=== PATIENT | female | born 1950 | race Caucasian/White ===

== ENCOUNTER 2016-07-11 11:24 | Inpatient (IN) | payer MEDICARE ==
[~2016-07-11] VITALS: Ht 165.1 cm; Wt 72.6 kg
--- NOTE | ~2016-07-11 | O ---
[place], [place] OPERATIVE NOTE NAME: KRISTIE KILGORE UNIT #: [id number] ROOM: [facility] DOCTOR: DUSTIN QURESHI MD BIRTHDATE: [birth year] DOS: 07/16/2016 PREOPERATIVE DIAGNOSIS: Perforated diverticulitis with pericolonic abscesses. POSTOPERATIVE DIAGNOSIS: Perforated diverticulitis with pericolonic abscesses. PROCEDURE: Exploratory laparotomy, sigmoid dissection, end colostomy (Sanjiv's procedure). SURGEON: Dustin Qureshi MD WILD OYSTER HARVESTER: MS3. ANESTHESIA: GET. INDICATIONS: This is a 66-year-old lady admitted with abdominal pain and a CAT scan that showed perforated diverticulitis. After she was started on medical measurement, she took a turn for the worse today and a CAT scan done this morning revealed that she developed worsening abscesses and worsening in inflammation in the sigmoid colon, where the diverticula were situated. It was therefore decided to take the patient to the operating room for the above-mentioned procedure. The procedure and its complications were explained to the patient in detail preoperatively. Complications that were discussed included, but were not limited to bleeding, infection, hematoma/seroma/abscess formation, prolonged postoperative pain, incisional hernia formation, damage to underlying vital structures, inadvertent injury to the ureters and wound dehiscence. She agreed to proceed. DESCRIPTION OF PROCEDURE: After identifying the patient, the patient was brought to the operating suite and laid in the supine position. After induction of general anesthesia, a Beltran catheter was placed in the urinary bladder and the parts were then painted and draped in the usual sterile fashion. A midline incision was made. The skin and the subcutaneous tissue were incised in the line of the incision. The fascia was incised and the peritoneum was opened. A Bookwalter retractor was placed in order to get adequate retraction. There was found to be dilated loops of small bowel with a transition point in the region of the pelvis where a segment of the terminal ileum had adhesed itself to the inflammation around the sigmoid colon. This loop of bowel was freed with the help of blunt dissection and the entire small bowel was then retracted away from the left lower quadrant and the pelvic areas. At this point, the white line of Toldt was incised laterally on the sigmoid colon area and the lower part of the descending colon and sigmoid colon were meticulously freed up from the surrounding areas. The vasculature of the sigmoid colon was taken down with the help of LigaSure device. This was done after the descending colon was divided with the help of MAURA stapler. The sigmoid colon was further mobilized with the help of electrocautery and blunt dissection as well as the mesentery of the sigmoid colon was taken down with the help of the LigaSure device. After adequate mobilization was completed, the ureter was visualized and it was found to be intact on the left side. At this point, the specimen was removed from the pelvic area by placing an atraumatic clamp over the distal margin of resection. [place], [place] OPERATIVE NOTE NAME: KRISTIE KILGORE UNIT #: [id number] ROOM: [facility] DOCTOR: DUSTIN QURESHI MD BIRTHDATE: [birth year] The specimen was sent for histopathological diagnosis. Thereafter, hemostasis was achieved in the region of the mesentery of the lower part of the sigmoid colon and the rectosigmoid area and the lumen was approximated with the help of 0 silk in an interrupted fashion and 0 Prolene in a running fashion. Thereafter, saline was used for irrigation and the entire small intestine was explored in order to make sure that there was no obvious injury. After that was done, the descending colon was further mobilized in order to create an end colostomy. After that was done, a position was chosen in the left lower quadrant in the colostomy triangle and a circular incision was made in the skin. The skin and the subcutaneous tissue were incised and the fascia was opened in a cruciate fashion. Thereafter, the distal part of the descending colon, which had been stapled was brought out and stabilized with the help of 2 Concord forceps. At this point, hemostasis was confirmed and the fascial defect in the midline was approximated with the help of looped PDS in a running fashion. The skin edges were then irrigated and they were approximated with the help of nely. The colostomy was matured by incising on the staple segment and then suturing the edges of the colon to the skin edges. VAC dressing was placed over the incision and a colostomy bag was then placed over the area of the colostomy. Then, it was hooked up to the vacuum pump and the patient was extubated and brought back to the recovery room in stable fashion. Note should be made that prior to closure, a 15-Polish round Alex-Cheney drain was placed and brought out through another stab incision in the right lower quadrant. The drain was fixed to the overlying skin with the help of a silk suture. The patient tolerated the procedure well. There were no complications. Blood loss was [address] Dustin Qureshi, the attending surgeon, was present throughout the operating case. Dustin Qureshi MD CM:OPRECORD:OPERATIVE NOTE [id number] DUSTIN QURESHI MD 07/16/161927 interface
--- NOTE | ~2016-07-11 | PR ---
[place], [place] PROGRESS NOTE NAME: KRISTIE KILGORE UNIT #: [id number] ROOM: 520 DOCTOR: DAVY FOREMAN,ITALIA Bello BIRTHDATE: [birth year] DOS: 07/24/2016 ADDENDUM I agree with the above plans as described. I will follow the patient up clinically and adjust accordingly. ITALIA BHATIT MD CM:PNTRANS [id number] ITALIA BHATTI MD 07/26/16 1049 interface
--- NOTE | ~2016-07-11 | PR ---
[place], [place] PROGRESS NOTE NAME: KRISTIE KILGORE UNIT #: [id number] ROOM: 520 DOCTOR: NICKY LOVE,AUGUST BIRTHDATE: [birth year] DOS: SUBJECTIVE: The patient is a 66-year-old female who is being followed for perforated diverticulitis. She is status post Sanjiv's procedure on 07/16/2016. Postoperatively, she had issues with fever and had a repeat CT, had fluid collection. She had a drain placed per Interventional Radiology. She has been having minimal drainage from she has [address] WBCs have been improving, they were 15.7 yesterday, 12.6 today. She is afebrile at this point. Her antibiotics yesterday were changed to Rocephin and Flagyl, fluconazole was also added. Abscess culture where IR placed a drain is growing yeast. She had developed a rash approximately 2-3 days ago as she had been on Zosyn at that time. She was seen by resident yesterday in consultation on behalf of Dr. Guo and antibiotics were changed to Rocephin and Flagyl and again fluconazole was ordered. She denies any cough or shortness of breath. No nausea or vomiting. Colostomy has been producing stool without issue. CURRENT MEDICATIONS: Include fluconazole, Pepcid, albumin, Rocephin, Benadryl, Flagyl, morphine, Wiggins, Lovenox, Protonix, Synthroid, nasal spray. LABORATORY DATA: WBCs 12.6, platelets 560, BUN 11, creatinine 1.17. LFTs within normal limits. Albumin 2.8. REVIEW OF SYSTEMS: Abdominal pain is improving. PHYSICAL EXAMINATION: VITAL SIGNS: Show temperature 98.6, pulse 92, respirations 20, BP 105/70, she has been afebrile. GENERAL: A 66-year-old female in no acute distress. HEAD, EYES, EARS, NOSE, AND THROAT: Normocephalic, no thrush. LUNGS: Clear to auscultation bilaterally. Respirations even and unlabored. HEART: Regular rhythm. No murmur appreciated. ABDOMEN: Soft, nondistended, positive bowel sounds. Ostomy with stool. Incision is well approximated with nely. No discharge or erythema. MELYSSA x 2 with small amount of serosanguineous discharge. EXTREMITIES: No edema, deformity or cyanosis. ASSESSMENT: Diverticulitis with perforation, now status post Sanjiv's procedure with abscess postoperatively. Cultures thus far with yeast. She also has an adverse drug reaction with rash, likely due to Zosyn. PLAN: At this point, we will continue the Rocephin and Flagyl as well as fluconazole. Follow up on her cultures. She does have Benadryl ordered for her rash. Case discussed with Dr. Italia Bhatti. AUGUST IVAN SAUNDERS [place], [place] PROGRESS NOTE NAME: KRISTIE KILGORE UNIT #: [id number] ROOM: [facility] DOCTOR: NICKY LOVE BIRTHDATE: [birth year] ITALIA BHATTI MD CM:PNTRANS [id number] [phone] NICKY LOVE 07/24/[id number] interface
[~2016-07-11 11:24] MED LIST: HYDROCODONE BIT1 T11 PO; KEFLEX500 M1 PO; Motrin,Rufen800 MG PO; PYRIDIUM200 M1 PO; Synthroid,Levo50 MCG PO; ZYRTEC10 M3 PO
[2016-07-11 12:11] LABS: BASO % 0.2 % (0.0-1.0); EOS % 0.1 % (1.0-4.0); HEMATOCRIT 39.2 % (37.0-47.0); HEMOGLOBIN 12.4 g/dl (12.0-16.0); IG # 0.1 10*3/uL (0.0-0.1); LYMPH # 0.7 10*3/uL (1.3-4.4); LYMPH % 5.2 % (27.0-41.0); MEAN CELL VOLUME 90.5 fl (81.0-99.0); MEAN CORPUSCULAR HGB 28.6 pg (27.0-31.0); MEAN CORPUSCULAR HGB CONC 31.6 g/dl (33.0-37.0); MEAN PLATELET VOLUME 10.3 fl (9.6-12.3); MONO # 0.6 10*3/uL (0.1-1.0); MONO % 3.9 % (3.0-9.0); NEUT # 12.6 10*3/uL (2.3-7.9); PLATELET COUNT AUTOMATED 203 10*3/uL (130-400); RED BLOOD COUNT 4.33 10*6/uL (4.10-5.10); RED CELL DISTRI WIDTH 13.3 % (0-14.5)
[2016-07-11 13:37] LABS: BILIRUBIN NEGATIVE (NEGATIVE); BLOOD 2+ (NEGATIVE); CLARITY SL CLOUDY (CLEAR); COLOR ORANGE (YELLOW); GLUCOSE 1+ (NEGATIVE); KETONE TRACE (NEGATIVE); NITRITE POSITIVE (NEGATIVE); PROTEIN 3+ (NEGATIVE); UROBILINOGEN >= 8.0 E.U./dl (0.2-1.0)
[2016-07-11 13:39] LABS: LEUKO ESTERASE 1+ (NEGATIVE)
[2016-07-11 13:56] LABS: URINE REFLEX COMMENT YES (NO)
[2016-07-11 14:37] LABS: BILIRUBIN, TOTAL 1.1 mg/dl (0.2-1.0); POTASSIUM 3.6 mmol/L (3.5-5.1)
[2016-07-11 18:27] LABS: CPK 115 U/L (26-192)
[2016-07-11 18:30] LABS: CKMB < 0.5 ng/ml (0.5-3.6); TROPONIN I < 0.015 ng/ml (<0.045)
[2016-07-12 00:40] LABS: CKMB 0.7 ng/ml (0.5-3.6); CPK 125 U/L (26-192)
[2016-07-12 00:41] LABS: TROPONIN I < 0.015 ng/ml (<0.045)
[2016-07-12 06:43] LABS: BASO % 0.2 % (0.0-1.0); EOS # 0.1 10*3/uL (0.0-0.4); EOS % 0.7 % (1.0-4.0); HEMATOCRIT 38.4 % (37.0-47.0); HEMOGLOBIN 12.1 g/dl (12.0-16.0); IG # 0.1 10*3/uL (0.0-0.1); LYMPH # 1.1 10*3/uL (1.3-4.4); LYMPH % 8.7 % (27.0-41.0); MEAN CELL VOLUME 90.4 fl (81.0-99.0); MEAN CORPUSCULAR HGB 28.5 pg (27.0-31.0); MEAN CORPUSCULAR HGB CONC 31.5 g/dl (33.0-37.0); MEAN PLATELET VOLUME 10.7 fl (9.6-12.3); MONO # 0.7 10*3/uL (0.1-1.0); MONO % 5.3 % (3.0-9.0); NEUT % 84.3 % (47.0-73.0); PLATELET COUNT AUTOMATED 226 10*3/uL (130-400); RED BLOOD COUNT 4.25 10*6/uL (4.10-5.10); RED CELL DISTRI WIDTH 13.3 % (0-14.5)
[2016-07-12 06:52] LABS: CKMB 0.7 ng/ml (0.5-3.6); CPK 109 U/L (26-192)
[2016-07-12 07:03] LABS: TROPONIN I < 0.015 ng/ml (<0.045)
[2016-07-12 07:12] LABS: ALBUMIN 2.5 gm/dl (3.1-4.5); BILIRUBIN, TOTAL 0.9 mg/dl (0.2-1.0); MAGNESIUM 2.2 mg/dL (1.5-2.1); PHOSPHOROUS 1.7 mg/dL (2.5-4.9); POTASSIUM 3.3 mmol/L (3.5-5.1); TOTAL PROTEIN 6.3 gm/dL (6.4-8.2)
[2016-07-12 07:23] LABS: INTERNATIONAL NORM RATIO 0.9 (2.0-3.5)
[2016-07-13 06:04] LABS: BASO % 0.4 % (0.0-1.0); EOS # 0.2 10*3/uL (0.0-0.4); EOS % 1.9 % (1.0-4.0); HEMATOCRIT 36.3 % (37.0-47.0); HEMOGLOBIN 11.3 g/dl (12.0-16.0); IG # 0.1 10*3/uL (0.0-0.1); LYMPH # 1.1 10*3/uL (1.3-4.4); LYMPH % 9.9 % (27.0-41.0); MEAN CELL VOLUME 91.4 fl (81.0-99.0); MEAN CORPUSCULAR HGB 28.5 pg (27.0-31.0); MEAN CORPUSCULAR HGB CONC 31.1 g/dl (33.0-37.0); MEAN PLATELET VOLUME 10.1 fl (9.6-12.3); MONO # 0.8 10*3/uL (0.1-1.0); NEUT # 8.6 10*3/uL (2.3-7.9); NEUT % 80.2 % (47.0-73.0); PLATELET COUNT AUTOMATED 249 10*3/uL (130-400); RED BLOOD COUNT 3.97 10*6/uL (4.10-5.10); RED CELL DISTRI WIDTH 13.3 % (0-14.5); WHITE BLOOD COUNT 10.8 10*3/uL (4.8-10.8)
[2016-07-13 06:32] LABS: ALBUMIN 2.3 gm/dl (3.1-4.5); MAGNESIUM 2.3 mg/dL (1.5-2.1); POTASSIUM 3.7 mmol/L (3.5-5.1)
[2016-07-13 06:34] LABS: BILIRUBIN, TOTAL 0.5 mg/dl (0.2-1.0); PHOSPHOROUS 3.1 mg/dL (2.5-4.9); TOTAL PROTEIN 5.8 gm/dL (6.4-8.2)
[2016-07-14 07:09] LABS: BASO # 0.1 10*3/uL (0.0-0.1); BASO % 0.5 % (0.0-1.0); EOS # 0.2 10*3/uL (0.0-0.4); EOS % 2.4 % (1.0-4.0); HEMATOCRIT 36.3 % (37.0-47.0); HEMOGLOBIN 11.4 g/dl (12.0-16.0); IG # 0.1 10*3/uL (0.0-0.1); LYMPH # 1.1 10*3/uL (1.3-4.4); MEAN CELL VOLUME 90.8 fl (81.0-99.0); MEAN CORPUSCULAR HGB 28.5 pg (27.0-31.0); MEAN CORPUSCULAR HGB CONC 31.4 g/dl (33.0-37.0); MONO # 0.9 10*3/uL (0.1-1.0); MONO % 8.9 % (3.0-9.0); NEUT # 7.7 10*3/uL (2.3-7.9); NEUT % 76.2 % (47.0-73.0); NUCLEATED RED BLOOD CELL 0.2 % (0.0-0.0); PLATELET COUNT AUTOMATED 252 10*3/uL (130-400); RED CELL DISTRI WIDTH 13.3 % (0-14.5); WHITE BLOOD COUNT 10.2 10*3/uL (4.8-10.8)
[2016-07-14 07:33] LABS: BUN 13 mg/dl (7-24); CARBON DIOXIDE 22 mmol/L (21-32); CHLORIDE 111 mmol/L (98-107); EST GLOM FILT AFRICAN AMERICAN > 60 ml/min; GLUCOSE 70 mg/dL (65-99); POTASSIUM 3.4 mmol/L (3.5-5.1); SODIUM 146 mmol/L (136-145)
[2016-07-15 06:19] LABS: BASO # 0.1 10*3/uL (0.0-0.1); BASO % 0.6 % (0.0-1.0); EOS # 0.3 10*3/uL (0.0-0.4); EOS % 2.7 % (1.0-4.0); HEMATOCRIT 37.3 % (37.0-47.0); HEMOGLOBIN 11.8 g/dl (12.0-16.0); IG # 0.3 10*3/uL (0.0-0.1); LYMPH # 1.5 10*3/uL (1.3-4.4); LYMPH % 13.3 % (27.0-41.0); MEAN CELL VOLUME 90.3 fl (81.0-99.0); MEAN CORPUSCULAR HGB 28.6 pg (27.0-31.0); MEAN CORPUSCULAR HGB CONC 31.6 g/dl (33.0-37.0); MEAN PLATELET VOLUME 9.9 fl (9.6-12.3); MONO # 0.8 10*3/uL (0.1-1.0); MONO % 7.5 % (3.0-9.0); NEUT % 73.5 % (47.0-73.0); NUCLEATED RED BLOOD CELL 0.3 % (0.0-0.0); PLATELET COUNT AUTOMATED 303 10*3/uL (130-400); RED BLOOD COUNT 4.13 10*6/uL (4.10-5.10); RED CELL DISTRI WIDTH 13.2 % (0-14.5); WHITE BLOOD COUNT 10.9 10*3/uL (4.8-10.8)
[2016-07-15 06:44] LABS: BUN 15 mg/dl (7-24); CARBON DIOXIDE 19 mmol/L (21-32); CHLORIDE 108 mmol/L (98-107); EST GLOM FILT AFRICAN AMERICAN > 60 ml/min; GLUCOSE 59 mg/dL (65-99); POTASSIUM 3.3 mmol/L (3.5-5.1); SODIUM 144 mmol/L (136-145)
[2016-07-16 06:47] LABS: BUN 9 mg/dl (7-24); CARBON DIOXIDE 23 mmol/L (21-32); CHLORIDE 106 mmol/L (98-107); EST GLOM FILT AFRICAN AMERICAN > 60 ml/min; GLUCOSE 86 mg/dL (65-99); POTASSIUM 3.2 mmol/L (3.5-5.1); SODIUM 143 mmol/L (136-145)
[2016-07-16 07:47] LABS: BASO # 0.1 10*3/uL (0.0-0.1); BASO % 0.4 % (0.0-1.0); EOS # 0.3 10*3/uL (0.0-0.4); EOS % 2.3 % (1.0-4.0); HEMATOCRIT 34.3 % (37.0-47.0); HEMOGLOBIN 11.1 g/dl (12.0-16.0); IG # 0.2 10*3/uL (0.0-0.1); LYMPH # 1.2 10*3/uL (1.3-4.4); LYMPH % 10.2 % (27.0-41.0); MEAN CELL VOLUME 88.9 fl (81.0-99.0); MEAN CORPUSCULAR HGB 28.8 pg (27.0-31.0); MEAN CORPUSCULAR HGB CONC 32.4 g/dl (33.0-37.0); MEAN PLATELET VOLUME 9.9 fl (9.6-12.3); MONO # 1.1 10*3/uL (0.1-1.0); MONO % 9.5 % (3.0-9.0); NEUT # 8.8 10*3/uL (2.3-7.9); NEUT % 75.7 % (47.0-73.0); NUCLEATED RED BLOOD CELL 0.1 10*3/uL (0.0-0.0); NUCLEATED RED BLOOD CELL 0.4 % (0.0-0.0); PLATELET COUNT AUTOMATED 270 10*3/uL (130-400); RED BLOOD COUNT 3.86 10*6/uL (4.10-5.10); RED CELL DISTRI WIDTH 13.3 % (0-14.5); WHITE BLOOD COUNT 11.6 10*3/uL (4.8-10.8)
[2016-07-17 05:54] LABS: BASO % 0.2 % (0.0-1.0); EOS % 0.3 % (1.0-4.0); HEMATOCRIT 35.7 % (37.0-47.0); HEMOGLOBIN 11.2 g/dl (12.0-16.0); IG # 0.2 10*3/uL (0.0-0.1); LYMPH # 1.1 10*3/uL (1.3-4.4); LYMPH % 9.6 % (27.0-41.0); MEAN CELL VOLUME 89.5 fl (81.0-99.0); MEAN CORPUSCULAR HGB 28.1 pg (27.0-31.0); MEAN CORPUSCULAR HGB CONC 31.4 g/dl (33.0-37.0); MONO # 0.7 10*3/uL (0.1-1.0); MONO % 6.1 % (3.0-9.0); NEUT # 9.5 10*3/uL (2.3-7.9); NEUT % 82.1 % (47.0-73.0); NUCLEATED RED BLOOD CELL 0.2 % (0.0-0.0); PLATELET COUNT AUTOMATED 312 10*3/uL (130-400); RED BLOOD COUNT 3.99 10*6/uL (4.10-5.10); RED CELL DISTRI WIDTH 13.5 % (0-14.5); WHITE BLOOD COUNT 11.5 10*3/uL (4.8-10.8)
[2016-07-17 05:55] LABS: ALBUMIN 1.8 gm/dl (3.1-4.5); ALKALINE PHOSPHATASE 50 U/L (45-117); BILIRUBIN, TOTAL 0.5 mg/dl (0.2-1.0); BUN 7 mg/dl (7-24); CARBON DIOXIDE 22 mmol/L (21-32); CHLORIDE 106 mmol/L (98-107); EST GLOM FILT AFRICAN AMERICAN > 60 ml/min; GLUCOSE 96 mg/dL (65-99); MAGNESIUM 1.8 mg/dL (1.5-2.1); POTASSIUM 3.9 mmol/L (3.5-5.1); SGOT/AST 23 IU/L (3-35); SGPT/ALT 14 U/L (12-78); SODIUM 142 mmol/L (136-145); TOTAL PROTEIN 5.1 gm/dL (6.4-8.2)
[2016-07-18 06:28] LABS: BASO # 0.1 10*3/uL (0.0-0.1); BASO % 0.3 % (0.0-1.0); EOS # 0.3 10*3/uL (0.0-0.4); EOS % 1.8 % (1.0-4.0); HEMATOCRIT 32.9 % (37.0-47.0); HEMOGLOBIN 10.4 g/dl (12.0-16.0); IG # 0.2 10*3/uL (0.0-0.1); LYMPH % 6.5 % (27.0-41.0); MEAN CELL VOLUME 89.6 fl (81.0-99.0); MEAN CORPUSCULAR HGB 28.3 pg (27.0-31.0); MEAN CORPUSCULAR HGB CONC 31.6 g/dl (33.0-37.0); MEAN PLATELET VOLUME 9.6 fl (9.6-12.3); MONO # 0.9 10*3/uL (0.1-1.0); MONO % 5.7 % (3.0-9.0); NEUT # 12.9 10*3/uL (2.3-7.9); NEUT % 84.3 % (47.0-73.0); NUCLEATED RED BLOOD CELL 0.1 % (0.0-0.0); PLATELET COUNT AUTOMATED 319 10*3/uL (130-400); RED BLOOD COUNT 3.67 10*6/uL (4.10-5.10); RED CELL DISTRI WIDTH 13.6 % (0-14.5); WHITE BLOOD COUNT 15.3 10*3/uL (4.8-10.8)
[2016-07-18 06:43] LABS: ALBUMIN 1.8 gm/dl (3.1-4.5); ALKALINE PHOSPHATASE 51 U/L (45-117); BILIRUBIN, TOTAL 0.6 mg/dl (0.2-1.0); BUN 7 mg/dl (7-24); CARBON DIOXIDE 25 mmol/L (21-32); CHLORIDE 103 mmol/L (98-107); EST GLOM FILT AFRICAN AMERICAN > 60 ml/min; GLUCOSE 76 mg/dL (65-99); POTASSIUM 3.6 mmol/L (3.5-5.1); SGOT/AST 40 IU/L (3-35); SGPT/ALT 16 U/L (12-78); SODIUM 141 mmol/L (136-145); TOTAL PROTEIN 5.5 gm/dL (6.4-8.2)
[2016-07-18 12:57] LABS: BILIRUBIN 1+ (NEGATIVE); BLOOD 3+ (NEGATIVE); CLARITY SL CLOUDY (CLEAR); COLOR YELLOW (YELLOW); GLUCOSE NEGATIVE (NEGATIVE); KETONE 3+ (NEGATIVE); LEUKO ESTERASE NEGATIVE (NEGATIVE); NITRITE NEGATIVE (NEGATIVE); PROTEIN 1+ (NEGATIVE); SPECIFIC GRAVITY 1.025 (1.005-1.030); UROBILINOGEN 0.2 E.U./dl (0.2-1.0)
[2016-07-18 13:11] LABS: BACTERIA 1+; MUCOUS 1+; RBC 41-50 rbc/hpf (0-2); URIC ACID CRYSTALS 1+
[2016-07-18 13:12] LABS: URINE REFLEX COMMENT YES (NO)
[2016-07-19 06:04] LABS: BASO % 0.2 % (0.0-1.0); EOS # 0.5 10*3/uL (0.0-0.4); EOS % 3.6 % (1.0-4.0); HEMATOCRIT 30.3 % (37.0-47.0); HEMOGLOBIN 9.5 g/dl (12.0-16.0); IG # 0.3 10*3/uL (0.0-0.1); LYMPH # 1.4 10*3/uL (1.3-4.4); LYMPH % 10.2 % (27.0-41.0); MEAN CELL VOLUME 89.9 fl (81.0-99.0); MEAN CORPUSCULAR HGB 28.2 pg (27.0-31.0); MEAN CORPUSCULAR HGB CONC 31.4 g/dl (33.0-37.0); MEAN PLATELET VOLUME 9.9 fl (9.6-12.3); MONO # 0.8 10*3/uL (0.1-1.0); NEUT # 10.8 10*3/uL (2.3-7.9); NEUT % 78.2 % (47.0-73.0); PLATELET COUNT AUTOMATED 347 10*3/uL (130-400); RED BLOOD COUNT 3.37 10*6/uL (4.10-5.10); RED CELL DISTRI WIDTH 13.6 % (0-14.5); WHITE BLOOD COUNT 13.8 10*3/uL (4.8-10.8)
[2016-07-19 06:11] LABS: BUN 7 mg/dl (7-24); CARBON DIOXIDE 28 mmol/L (21-32); CHLORIDE 104 mmol/L (98-107); EST GLOM FILT AFRICAN AMERICAN > 60 ml/min; GLUCOSE 88 mg/dL (65-99); POTASSIUM 3.1 mmol/L (3.5-5.1); SODIUM 142 mmol/L (136-145)
[2016-07-20 06:25] LABS: BASO % 0.3 % (0.0-1.0); EOS # 0.3 10*3/uL (0.0-0.4); EOS % 2.6 % (1.0-4.0); HEMATOCRIT 30.8 % (37.0-47.0); HEMOGLOBIN 9.7 g/dl (12.0-16.0); IG # 0.2 10*3/uL (0.0-0.1); LYMPH # 1.5 10*3/uL (1.3-4.4); LYMPH % 13.2 % (27.0-41.0); MEAN CELL VOLUME 89.8 fl (81.0-99.0); MEAN CORPUSCULAR HGB 28.3 pg (27.0-31.0); MEAN CORPUSCULAR HGB CONC 31.5 g/dl (33.0-37.0); MEAN PLATELET VOLUME 9.6 fl (9.6-12.3); MONO # 0.7 10*3/uL (0.1-1.0); MONO % 6.1 % (3.0-9.0); NEUT # 8.9 10*3/uL (2.3-7.9); NEUT % 76.2 % (47.0-73.0); NUCLEATED RED BLOOD CELL 0.3 % (0.0-0.0); PLATELET COUNT AUTOMATED 430 10*3/uL (130-400); RED BLOOD COUNT 3.43 10*6/uL (4.10-5.10); RED CELL DISTRI WIDTH 13.7 % (0-14.5); WHITE BLOOD COUNT 11.7 10*3/uL (4.8-10.8)
[2016-07-20 06:44] LABS: BUN 7 mg/dl (7-24); CARBON DIOXIDE 28 mmol/L (21-32); CHLORIDE 106 mmol/L (98-107); EST GLOM FILT AFRICAN AMERICAN > 60 ml/min; GLUCOSE 89 mg/dL (65-99); MAGNESIUM 2.1 mg/dL (1.5-2.1); PHOSPHOROUS 2.2 mg/dL (2.5-4.9); POTASSIUM 3.4 mmol/L (3.5-5.1); SODIUM 143 mmol/L (136-145)
[2016-07-21 07:21] LABS: BASO % 0.2 % (0.0-1.0); EOS # 0.3 10*3/uL (0.0-0.4); EOS % 2.4 % (1.0-4.0); HEMATOCRIT 28.7 % (37.0-47.0); HEMOGLOBIN 9.1 g/dl (12.0-16.0); IG # 0.2 10*3/uL (0.0-0.1); LYMPH # 1.3 10*3/uL (1.3-4.4); LYMPH % 9.6 % (27.0-41.0); MEAN CORPUSCULAR HGB 28.5 pg (27.0-31.0); MEAN CORPUSCULAR HGB CONC 31.7 g/dl (33.0-37.0); MEAN PLATELET VOLUME 9.6 fl (9.6-12.3); MONO # 0.9 10*3/uL (0.1-1.0); MONO % 6.8 % (3.0-9.0); NEUT # 10.4 10*3/uL (2.3-7.9); NEUT % 79.6 % (47.0-73.0); PLATELET COUNT AUTOMATED 444 10*3/uL (130-400); RED BLOOD COUNT 3.19 10*6/uL (4.10-5.10); RED CELL DISTRI WIDTH 13.8 % (0-14.5); WHITE BLOOD COUNT 13.1 10*3/uL (4.8-10.8)
[2016-07-21 07:50] LABS: BUN 8 mg/dl (7-24); CARBON DIOXIDE 29 mmol/L (21-32); CHLORIDE 108 mmol/L (98-107); EST GLOM FILT AFRICAN AMERICAN > 60 ml/min; GLUCOSE 99 mg/dL (65-99); POTASSIUM 3.7 mmol/L (3.5-5.1); SODIUM 146 mmol/L (136-145)
[2016-07-22 07:04] LABS: BASO % 0.3 % (0.0-1.0); EOS # 0.3 10*3/uL (0.0-0.4); EOS % 2.3 % (1.0-4.0); HEMATOCRIT 28.8 % (37.0-47.0); IG # 0.2 10*3/uL (0.0-0.1); LYMPH # 1.3 10*3/uL (1.3-4.4); LYMPH % 9.3 % (27.0-41.0); MEAN CELL VOLUME 89.7 fl (81.0-99.0); MEAN CORPUSCULAR HGB CONC 31.3 g/dl (33.0-37.0); MEAN PLATELET VOLUME 9.8 fl (9.6-12.3); MONO # 0.9 10*3/uL (0.1-1.0); MONO % 6.4 % (3.0-9.0); NEUT # 11.3 10*3/uL (2.3-7.9); PLATELET COUNT AUTOMATED 487 10*3/uL (130-400); RED BLOOD COUNT 3.21 10*6/uL (4.10-5.10); RED CELL DISTRI WIDTH 13.9 % (0-14.5); WHITE BLOOD COUNT 14.2 10*3/uL (4.8-10.8)
[2016-07-22 07:37] LABS: CHLORIDE 106 mmol/L (98-107); POTASSIUM 3.8 mmol/L (3.5-5.1); SODIUM 143 mmol/L (136-145)
[2016-07-22 07:50] LABS: ALBUMIN 1.8 gm/dl (3.1-4.5); ALKALINE PHOSPHATASE 63 U/L (45-117); BILIRUBIN, TOTAL 0.3 mg/dl (0.2-1.0); BUN 10 mg/dl (7-24); CARBON DIOXIDE 27 mmol/L (21-32); EST GLOM FILT AFRICAN AMERICAN > 60 ml/min; GLUCOSE 91 mg/dL (65-99); MAGNESIUM 2.2 mg/dL (1.5-2.1); PHOSPHOROUS 3.2 mg/dL (2.5-4.9); SGOT/AST 17 IU/L (3-35); SGPT/ALT 13 U/L (12-78); TOTAL PROTEIN 5.4 gm/dL (6.4-8.2)
[2016-07-22 08:45] LABS: BILIRUBIN NEGATIVE (NEGATIVE); BLOOD TRACE-LYSED (NEGATIVE); CLARITY SL CLOUDY (CLEAR); COLOR YELLOW (YELLOW); GLUCOSE NEGATIVE (NEGATIVE); KETONE NEGATIVE (NEGATIVE); LEUKO ESTERASE NEGATIVE (NEGATIVE); NITRITE NEGATIVE (NEGATIVE); PROTEIN NEGATIVE (NEGATIVE); UROBILINOGEN 0.2 E.U./dl (0.2-1.0)
[2016-07-22 08:51] LABS: EPITHELIAL CELLS 41-50
[2016-07-22 08:52] LABS: BACTERIA TRACE
[2016-07-23 06:33] LABS: BASO % 0.2 % (0.0-1.0); EOS # 0.3 10*3/uL (0.0-0.4); HEMOGLOBIN 9.7 g/dl (12.0-16.0); IG # 0.3 10*3/uL (0.0-0.1); LYMPH # 1.2 10*3/uL (1.3-4.4); LYMPH % 7.5 % (27.0-41.0); MEAN CELL VOLUME 89.1 fl (81.0-99.0); MEAN CORPUSCULAR HGB 27.9 pg (27.0-31.0); MEAN CORPUSCULAR HGB CONC 31.3 g/dl (33.0-37.0); MEAN PLATELET VOLUME 9.5 fl (9.6-12.3); MONO # 0.9 10*3/uL (0.1-1.0); MONO % 5.6 % (3.0-9.0); NEUT % 82.8 % (47.0-73.0); PLATELET COUNT AUTOMATED 586 10*3/uL (130-400); RED BLOOD COUNT 3.48 10*6/uL (4.10-5.10); RED CELL DISTRI WIDTH 14.2 % (0-14.5); WHITE BLOOD COUNT 15.7 10*3/uL (4.8-10.8)
[2016-07-24 07:06] LABS: BASO % 0.2 % (0.0-1.0); EOS # 0.4 10*3/uL (0.0-0.4); EOS % 3.2 % (1.0-4.0); HEMOGLOBIN 8.2 g/dl (12.0-16.0); IG # 0.2 10*3/uL (0.0-0.1); LYMPH % 8.1 % (27.0-41.0); MEAN CELL VOLUME 88.7 fl (81.0-99.0); MEAN CORPUSCULAR HGB CONC 31.5 g/dl (33.0-37.0); MEAN PLATELET VOLUME 9.4 fl (9.6-12.3); MONO # 0.9 10*3/uL (0.1-1.0); MONO % 6.8 % (3.0-9.0); NEUT # 10.1 10*3/uL (2.3-7.9); NEUT % 79.8 % (47.0-73.0); PLATELET COUNT AUTOMATED 560 10*3/uL (130-400); RED BLOOD COUNT 2.93 10*6/uL (4.10-5.10); RED CELL DISTRI WIDTH 14.1 % (0-14.5); WHITE BLOOD COUNT 12.6 10*3/uL (4.8-10.8)
[2016-07-24 07:35] LABS: ALBUMIN 2.8 gm/dl (3.1-4.5); POTASSIUM 3.8 mmol/L (3.5-5.1); TOTAL PROTEIN 5.9 gm/dL (6.4-8.2)
[2016-07-24 07:36] LABS: BILIRUBIN, TOTAL 0.3 mg/dl (0.2-1.0)
[2016-07-25 06:47] LABS: BASO % 0.2 % (0.0-1.0); EOS # 0.4 10*3/uL (0.0-0.4); EOS % 4.3 % (1.0-4.0); HEMATOCRIT 24.8 % (37.0-47.0); HEMOGLOBIN 7.7 g/dl (12.0-16.0); IG # 0.1 10*3/uL (0.0-0.1); LYMPH # 1.2 10*3/uL (1.3-4.4); LYMPH % 12.1 % (27.0-41.0); MEAN CELL VOLUME 89.9 fl (81.0-99.0); MEAN CORPUSCULAR HGB 27.9 pg (27.0-31.0); MEAN PLATELET VOLUME 9.2 fl (9.6-12.3); MONO # 0.8 10*3/uL (0.1-1.0); NEUT # 7.6 10*3/uL (2.3-7.9); PLATELET COUNT AUTOMATED 527 10*3/uL (130-400); RED BLOOD COUNT 2.76 10*6/uL (4.10-5.10); RED CELL DISTRI WIDTH 14.1 % (0-14.5); WHITE BLOOD COUNT 10.3 10*3/uL (4.8-10.8)
[2016-07-25 07:19] LABS: ALBUMIN 3.4 gm/dl (3.1-4.5); BILIRUBIN, TOTAL 0.3 mg/dl (0.2-1.0); POTASSIUM 3.7 mmol/L (3.5-5.1); TOTAL PROTEIN 6.2 gm/dL (6.4-8.2)
[2016-07-26 06:28] LABS: BASO % 0.4 % (0.0-1.0); EOS # 0.4 10*3/uL (0.0-0.4); EOS % 3.6 % (1.0-4.0); HEMATOCRIT 28.2 % (37.0-47.0); HEMOGLOBIN 8.7 g/dl (12.0-16.0); IG # 0.1 10*3/uL (0.0-0.1); LYMPH # 1.5 10*3/uL (1.3-4.4); LYMPH % 15.3 % (27.0-41.0); MEAN CORPUSCULAR HGB 28.1 pg (27.0-31.0); MEAN CORPUSCULAR HGB CONC 30.9 g/dl (33.0-37.0); MEAN PLATELET VOLUME 9.6 fl (9.6-12.3); MONO # 0.9 10*3/uL (0.1-1.0); MONO % 8.7 % (3.0-9.0); NEUT # 6.9 10*3/uL (2.3-7.9); NEUT % 70.9 % (47.0-73.0); PLATELET COUNT AUTOMATED 616 10*3/uL (130-400); RED CELL DISTRI WIDTH 14.2 % (0-14.5); WHITE BLOOD COUNT 9.7 10*3/uL (4.8-10.8)
[2016-07-26 06:53] LABS: POTASSIUM 3.8 mmol/L (3.5-5.1)
[2016-07-26] MEDS ORDERED: PANTOPRAZOLE SO40 MG PO (15:38)
[2016-07-26] MEDS ORDERED: FLUCONAZOLE100 MG PO (15:38)
[2016-07-26] MEDS ORDERED: METRONIDAZOLE500 M1 PO ×2 (15:38→16:31)
[2016-07-26] MEDS ORDERED: LEVOTHYROXIN0.025 M1 PO (15:38)
[2016-07-26] MEDS ORDERED: NORCO 5-325 TA1 EACH PO (15:56)
[2016-07-26] MEDS ORDERED: CIPRO500 MG PO (16:31)
== END 2016-07-26 17:53 | disposition other institution (70) | DRG 853 ==
LOC: ED 11:24 → EDHOLD 14:17 → ICCU 14:17 → 5E 14:17 → ICCU 07-16 19:01 → 5E 07-19 14:00
PROVIDERS: Emergency Medicine; Family Medicine; Internal Medicine; Internal Medicine Hospice and Palliative Medicine; Internal Medicine Infectious Disease; Student in an Organized Health Care Education/Training Program; Surgery
PROC: 0DTN0ZZ Resection of Sigmoid Colon, Open Approach (ICD-10-PCS; principal; 2016-07-16)
PROC: 0WJP0ZZ Inspection of Gastrointestinal Tract, Open Approach (ICD-10-PCS; 2016-07-16)
PROC: 0D1M0Z4 Bypass Descending Colon to Cutaneous, Open Approach (ICD-10-PCS; 2016-07-16)
PROC: 0W9J00Z Drainage of Pelvic Cavity with Drainage Device, Open Approach (ICD-10-PCS; 2016-07-22)
DX: A41.9 Sepsis, unspecified organism (principal); E43 Unspecified severe protein-calorie malnutrition; K56.69 Other intestinal obstruction; K57.20 Diverticulitis of large intestine with perforation and abscess without bleeding; N39.0 Urinary tract infection, site not specified; L02.818 Cutaneous abscess of other sites; E03.9 Hypothyroidism, unspecified; Z87.442 Personal history of urinary calculi; Z87.891 Personal history of nicotine dependence; Z82.49 Family history of ischemic heart disease and other diseases of the circulatory system; Z88.5 Allergy status to narcotic agent; Z88.6 Allergy status to analgesic agent; J30.2 Other seasonal allergic rhinitis; Z68.26 Body mass index [BMI] 26.0-26.9, adult

== ENCOUNTER → 2016-12-01 | Outpatient (CLI) | payer MEDICARE ==
[~2016-12-01] MED LIST changes: +CIPRO500 MG PO; +FLUCONAZOLE100 MG PO; +LEVOTHYROXIN0.025 M1 PO; +METRONIDAZOLE500 M1 PO; +NORCO 5-325 TA1 EACH PO; +PANTOPRAZOLE SO40 MG PO
== END | disposition home or self-care (01) ==
LOC: RAD 09:46
DX: Z01.818 Encounter for other preprocedural examination (principal); M40.294 Other kyphosis, thoracic region; Z93.3 Colostomy status; Z87.891 Personal history of nicotine dependence

== ENCOUNTER 2016-12-17 14:23 | Inpatient (IN) | payer MEDICARE ==
[~2016-12-17] VITALS: Ht 165.1 cm; Wt 76.3 kg
[2016-12-17 14:29] VITALS: BP 130/89
[2016-12-17 15:06] LABS: HEMATOCRIT 30.3 % (37.0-47.0); HEMOGLOBIN 9.5 g/dl (12.0-16.0); MEAN CELL VOLUME 83.2 fl (81.0-99.0); MEAN CORPUSCULAR HGB 26.1 pg (27.0-31.0); MEAN CORPUSCULAR HGB CONC 31.4 g/dl (33.0-37.0); NUCLEATED RED BLOOD CELL 0.1 10*3/uL (0.0-0.0); NUCLEATED RED BLOOD CELL 0.5 % (0.0-0.0); PLATELET COUNT AUTOMATED 320 10*3/uL (130-400); RED BLOOD COUNT 3.64 10*6/uL (4.10-5.10); RED CELL DISTRI WIDTH 15.8 % (0-14.5); WHITE BLOOD COUNT 13.5 10*3/uL (4.8-10.8)
[2016-12-17 15:22] LABS: ALBUMIN 2.2 gm/dl (3.1-4.5); ALKALINE PHOSPHATASE 77 U/L (45-117); BILIRUBIN, TOTAL 0.5 mg/dl (0.2-1.0); BUN 14 mg/dl (7-24); CARBON DIOXIDE 24 mmol/L (21-32); CHLORIDE 107 mmol/L (98-107); CKMB 0.7 ng/ml (0.5-3.6); CPK 58 U/L (26-192); EST GLOM FILT AFRICAN AMERICAN > 60 ml/min; GLUCOSE 91 mg/dL (65-99); MAGNESIUM 1.9 mg/dL (1.5-2.1); POTASSIUM 3.5 mmol/L (3.5-5.1); SGOT/AST 16 IU/L (3-35); SGPT/ALT 14 U/L (12-78); SODIUM 141 mmol/L (136-145); TOTAL PROTEIN 6.5 gm/dL (6.4-8.2)
[2016-12-17 15:23] LABS: TROPONIN I < 0.015 ng/ml (<0.045)
[2016-12-17 15:25] LABS: EOSINOPHIL # 0.3 10*3/uL (0-0.4); EOSINOPHILS 2 % (1-4); LYMPHOCYTE # 1.5 10*3/uL (1.3-4.4); METAMYELOCYTES 2 % (0-0); MONOCYTE # 0.3 10*3/uL (0.1-1.0); NEUTROPHIL # 11.2 10*3/uL (2.3-7.9); NEUTROPHILS 83 % (47-73); PLATELET SUFFICIENCY NORMAL (NORMAL); TOTAL CELLS COUNTED 100 #CELLS; TOXIC GRANULATION SLIGHT
[2016-12-17 15:26] LABS: PROTHROMBIN TIME 10.2 SECONDS (9.0-12.4)
[2016-12-17 15:38] VITALS: BP 126/80
[2016-12-17 17:37] LABS: BILIRUBIN 1+ (NEGATIVE); BLOOD 1+ (NEGATIVE); CLARITY SL CLOUDY (CLEAR); COLOR YELLOW (YELLOW); GLUCOSE NEGATIVE (NEGATIVE); KETONE 1+ (NEGATIVE); LEUKO ESTERASE NEGATIVE (NEGATIVE); NITRITE NEGATIVE (NEGATIVE); PH 5.5 (5.0-9.0); PROTEIN 1+ (NEGATIVE); UROBILINOGEN 0.2 E.U./dl (0.2-1.0)
[2016-12-17 17:38] VITALS: BP 132/78
[2016-12-17 17:45] LABS: BACTERIA 1+; URINE REFLEX COMMENT YES (NO)
[2016-12-17 19:25] VITALS: BP 136/72
[2016-12-17 20:00] VITALS: BP 136/72
[2016-12-18] VITALS: BP 120/66
[2016-12-18 06:20] LABS: HEMATOCRIT 29.1 % (37.0-47.0); HEMOGLOBIN 9.3 g/dl (12.0-16.0); MEAN CORPUSCULAR HGB 26.2 pg (27.0-31.0); MEAN PLATELET VOLUME 10.1 fl (9.6-12.3); NUCLEATED RED BLOOD CELL 0.1 10*3/uL (0.0-0.0); NUCLEATED RED BLOOD CELL 0.4 % (0.0-0.0); PLATELET COUNT AUTOMATED 344 10*3/uL (130-400); RED BLOOD COUNT 3.55 10*6/uL (4.10-5.10); RED CELL DISTRI WIDTH 15.8 % (0-14.5); WHITE BLOOD COUNT 12.8 10*3/uL (4.8-10.8)
[2016-12-18 06:49] LABS: BUN 14 mg/dl (7-24); CARBON DIOXIDE 27 mmol/L (21-32); CHLORIDE 104 mmol/L (98-107); CHOLESTEROL 105 mg/dL (<200); EST GLOM FILT AFRICAN AMERICAN > 60 ml/min; FREE T4 1.68 ng/dl (0.76-1.46); GLUCOSE 89 mg/dL (65-99); HDL CHOLESTEROL 29 mg/dl (40-60); LDL CHOLESTEROL 55 mg/dL (9-159); PHOSPHOROUS 3.8 mg/dL (2.5-4.9); POTASSIUM 3.2 mmol/L (3.5-5.1); SODIUM 141 mmol/L (136-145); TRIGLYCERIDES 105 mg/dl (<150); VLDL CHOLESTEROL 21 mg/dL (6-40)
[2016-12-18 07:00] LABS: EOSINOPHIL # 0.1 10*3/uL (0-0.4); EOSINOPHILS 1 % (1-4); LYMPHOCYTE # 1.3 10*3/uL (1.3-4.4); MONOCYTE # 0.8 10*3/uL (0.1-1.0); NEUTROPHIL # 10.6 10*3/uL (2.3-7.9); NEUTROPHILS 83 % (47-73); PLATELET SUFFICIENCY NORMAL (NORMAL); TOTAL CELLS COUNTED 100 #CELLS; TOXIC GRANULATION SLIGHT
[2016-12-18 07:21] LABS: VITAMIN D, 25-HYDROXY 23.6 ng/mL (30-100)
[2016-12-18 07:22] LABS: FOLIC ACID 10.39 ng/mL (>5.38)
[2016-12-18 08:00] VITALS: BP 118/75
[2016-12-18] MEDS ORDERED: OMEPRAZOLE40 MG PO (09:19)
[2016-12-18] MEDS ORDERED: ZYRTEC10 MG PO (09:19)
[2016-12-18] MEDS ORDERED: KETOROLAC10 MG PO (09:33)
[2016-12-18 12:00] VITALS: BP 113/67
[2016-12-18 16:00] VITALS: BP 105/64
[2016-12-18 20:00] VITALS: BP 91/66
[2016-12-19] VITALS: BP 102/57
[2016-12-19 08:00] VITALS: BP 91/54
[2016-12-19 10:26] LABS: BASO % 0.2 % (0.0-1.0); EOS # 0.4 10*3/uL (0.0-0.4); EOS % 2.7 % (1.0-4.0); HEMATOCRIT 30.5 % (37.0-47.0); HEMOGLOBIN 9.6 g/dl (12.0-16.0); IG # 0.3 10*3/uL (0.0-0.1); LYMPH # 1.4 10*3/uL (1.3-4.4); LYMPH % 9.7 % (27.0-41.0); MEAN CORPUSCULAR HGB 25.8 pg (27.0-31.0); MEAN CORPUSCULAR HGB CONC 31.5 g/dl (33.0-37.0); MEAN PLATELET VOLUME 9.6 fl (9.6-12.3); MONO # 0.9 10*3/uL (0.1-1.0); MONO % 5.9 % (3.0-9.0); NEUT # 11.7 10*3/uL (2.3-7.9); NEUT % 79.8 % (47.0-73.0); NUCLEATED RED BLOOD CELL 0.1 % (0.0-0.0); PLATELET COUNT AUTOMATED 431 10*3/uL (130-400); RED BLOOD COUNT 3.72 10*6/uL (4.10-5.10); RED CELL DISTRI WIDTH 15.7 % (0-14.5); WHITE BLOOD COUNT 14.6 10*3/uL (4.8-10.8)
[2016-12-19 10:39] LABS: POTASSIUM 3.5 mmol/L (3.5-5.1)
[2016-12-19 12:00] VITALS: BP 96/57
[2016-12-19 16:00] VITALS: BP 110/51
[2016-12-19 20:00] VITALS: BP 90/60
[2016-12-20] VITALS: BP 103/61
[2016-12-20 07:21] LABS: BASO % 0.3 % (0.0-1.0); BILIRUBIN, TOTAL 0.3 mg/dl (0.2-1.0); EOS # 0.4 10*3/uL (0.0-0.4); EOS % 3.5 % (1.0-4.0); HEMATOCRIT 27.8 % (37.0-47.0); HEMOGLOBIN 8.5 g/dl (12.0-16.0); IG # 0.2 10*3/uL (0.0-0.1); LYMPH # 1.6 10*3/uL (1.3-4.4); LYMPH % 13.6 % (27.0-41.0); MEAN CELL VOLUME 83.2 fl (81.0-99.0); MEAN CORPUSCULAR HGB 25.4 pg (27.0-31.0); MEAN CORPUSCULAR HGB CONC 30.6 g/dl (33.0-37.0); MEAN PLATELET VOLUME 9.9 fl (9.6-12.3); MONO # 0.8 10*3/uL (0.1-1.0); MONO % 6.8 % (3.0-9.0); NEUT # 8.6 10*3/uL (2.3-7.9); NEUT % 74.1 % (47.0-73.0); PLATELET COUNT AUTOMATED 462 10*3/uL (130-400); POTASSIUM 3.7 mmol/L (3.5-5.1); RED BLOOD COUNT 3.34 10*6/uL (4.10-5.10); RED CELL DISTRI WIDTH 15.9 % (0-14.5); WHITE BLOOD COUNT 11.6 10*3/uL (4.8-10.8)
[2016-12-20 08:00] VITALS: BP 107/48
[2016-12-20 12:00] VITALS: BP 124/69
[2016-12-20 16:00] VITALS: BP 101/50
[2016-12-20 20:00] VITALS: BP 105/56
[2016-12-21] VITALS: BP 107/58
[2016-12-21 06:23] LABS: BASO % 0.4 % (0.0-1.0); EOS # 0.3 10*3/uL (0.0-0.4); HEMATOCRIT 26.7 % (37.0-47.0); HEMOGLOBIN 8.1 g/dl (12.0-16.0); IG # 0.2 10*3/uL (0.0-0.1); LYMPH # 1.6 10*3/uL (1.3-4.4); LYMPH % 14.4 % (27.0-41.0); MEAN CORPUSCULAR HGB 25.5 pg (27.0-31.0); MEAN CORPUSCULAR HGB CONC 30.3 g/dl (33.0-37.0); MEAN PLATELET VOLUME 9.6 fl (9.6-12.3); MONO % 8.8 % (3.0-9.0); NEUT # 8.1 10*3/uL (2.3-7.9); NEUT % 72.1 % (47.0-73.0); PLATELET COUNT AUTOMATED 483 10*3/uL (130-400); RED BLOOD COUNT 3.18 10*6/uL (4.10-5.10); RED CELL DISTRI WIDTH 15.9 % (0-14.5); WHITE BLOOD COUNT 11.3 10*3/uL (4.8-10.8)
[2016-12-21 06:46] LABS: ALBUMIN 1.8 gm/dl (3.1-4.5); BILIRUBIN, TOTAL 0.2 mg/dl (0.2-1.0); POTASSIUM 4.2 mmol/L (3.5-5.1); TOTAL PROTEIN 5.8 gm/dL (6.4-8.2)
[2016-12-21 08:00] VITALS: BP 110/64
[2016-12-21 12:00] VITALS: BP 111/63
[2016-12-21 16:00] VITALS: BP 104/57
[2016-12-21 20:00] VITALS: BP 104/46
[2016-12-22] VITALS: BP 110/51
[2016-12-22 06:51] LABS: BASO # 0.1 10*3/uL (0.0-0.1); BASO % 0.5 % (0.0-1.0); EOS # 0.3 10*3/uL (0.0-0.4); EOS % 2.9 % (1.0-4.0); HEMATOCRIT 28.5 % (37.0-47.0); HEMOGLOBIN 8.7 g/dl (12.0-16.0); IG # 0.1 10*3/uL (0.0-0.1); LYMPH # 1.5 10*3/uL (1.3-4.4); LYMPH % 14.4 % (27.0-41.0); MEAN CELL VOLUME 83.6 fl (81.0-99.0); MEAN CORPUSCULAR HGB 25.5 pg (27.0-31.0); MEAN CORPUSCULAR HGB CONC 30.5 g/dl (33.0-37.0); MEAN PLATELET VOLUME 9.4 fl (9.6-12.3); MONO % 9.7 % (3.0-9.0); NEUT # 7.6 10*3/uL (2.3-7.9); NEUT % 71.5 % (47.0-73.0); PLATELET COUNT AUTOMATED 552 10*3/uL (130-400); RED BLOOD COUNT 3.41 10*6/uL (4.10-5.10); RED CELL DISTRI WIDTH 15.9 % (0-14.5); WHITE BLOOD COUNT 10.6 10*3/uL (4.8-10.8)
[2016-12-22 07:23] LABS: POTASSIUM 3.9 mmol/L (3.5-5.1)
[2016-12-22 08:00] VITALS: BP 113/84
[2016-12-22 12:00] VITALS: BP 122/76
[2016-12-22] MEDS ORDERED: VITAMIN D31000 UNIT PO (15:02)
[2016-12-22 16:00] VITALS: BP 116/64
[2016-12-22 20:00] VITALS: BP 110/60
[2016-12-23] VITALS: BP 107/60
[2016-12-23 08:00] VITALS: BP 102/64
[2016-12-23 12:00] VITALS: BP 102/60
== END 2016-12-23 13:49 | disposition short-term general hospital (02) | DRG 682 ==
LOC: ED 14:23 → 5E 17:31 → EDHOLD 17:31 → 5E 18:35
PROVIDERS: Emergency Medicine; Family Medicine; Internal Medicine; Internal Medicine Hospice and Palliative Medicine
DX: N17.0 Acute kidney failure with tubular necrosis (principal); E43 Unspecified severe protein-calorie malnutrition; R65.10 Systemic inflammatory response syndrome (SIRS) of non-infectious origin without acute organ dysfunction; N39.0 Urinary tract infection, site not specified; K94.09 Other complications of colostomy; N18.3 Chronic kidney disease, stage 3 (moderate); R06.09 Other forms of dyspnea; D47.3 Essential (hemorrhagic) thrombocythemia; E55.9 Vitamin D deficiency, unspecified; K21.9 Gastro-esophageal reflux disease without esophagitis; E03.9 Hypothyroidism, unspecified; D64.9 Anemia, unspecified; J30.2 Other seasonal allergic rhinitis; B95.2 Enterococcus as the cause of diseases classified elsewhere; Y83.8 Other surgical procedures as the cause of abnormal reaction of the patient, or of later complication, without mention of misadventure at the time of the procedure; Y82.8 Other medical devices associated with adverse incidents; Z68.27 Body mass index [BMI] 27.0-27.9, adult; Z87.891 Personal history of nicotine dependence; Z88.0 Allergy status to penicillin; Y92.89 Other specified places as the place of occurrence of the external cause; Z88.8 Allergy status to other drugs, medicaments and biological substances; Z82.0 Family history of epilepsy and other diseases of the nervous system; Z82.49 Family history of ischemic heart disease and other diseases of the circulatory system

== ENCOUNTER 2021-07-06 12:31 | Emergency (ER) | payer MEDICARE ==
[~2021-07-06] VITALS: Ht 162.5 cm; Wt 70.3 kg
[~2021-07-06 12:31] MED LIST changes: +KETOROLAC10 MG PO; +OMEPRAZOLE40 MG PO; +VITAMIN D31000 UNIT PO; +ZYRTEC10 MG PO
[2021-07-06] MEDS ORDERED: LEADER NATUR1000 MCG PO (12:40)
[2021-07-06 12:47] LABS: BASO # 0.1 10*3/uL (0.0-0.1); EOS # 0.1 10*3/uL (0.0-0.4); HEMATOCRIT 43.9 % (37.0-47.0); LYMPH # 1.2 10*3/uL (1.3-4.4); LYMPH % 16.8 % (27.0-41.0); MEAN CELL VOLUME 85.7 fl (81.0-99.0); MEAN CORPUSCULAR HGB 27.5 pg (27.0-31.0); MEAN CORPUSCULAR HGB CONC 32.1 g/dl (33.0-37.0); MEAN PLATELET VOLUME 9.8 fl (9.6-12.3); MONO # 0.7 10*3/uL (0.1-1.0); MONO % 9.6 % (3.0-9.0); NEUT % 70.3 % (47.0-73.0); PLATELET COUNT AUTOMATED 269 10*3/uL (130-400); RED BLOOD COUNT 5.12 10*6/uL (4.10-5.10); WHITE BLOOD COUNT 7.1 10*3/uL (4.8-10.8)
[2021-07-06 12:59] LABS: ACT PARTIAL THROMBO TIME 24.1 SECONDS (20.0-32.1)
[2021-07-06 13:05] LABS: ALKALINE PHOSPHATASE 90 U/L (45-117); BUN 27 mg/dl (7-24); CHLORIDE 111 mmol/L (98-107); POTASSIUM 3.6 mmol/L (3.5-5.1); SGOT/AST 18 IU/L (3-35); SGPT/ALT 19 U/L (12-78); SODIUM 142 mmol/L (136-145); TOTAL PROTEIN 7.8 gm/dL (6.4-8.2)
[2021-07-06 15:53] VITALS: BP 145/86
[2021-07-06 15:54] LABS: BILIRUBIN Negative (Negative); BLOOD 1+ (Negative); CLARITY Clear (Clear); COLOR Yellow (Yellow); GLUCOSE Negative (Negative); KETONE 1+ (Negative); LEUKO ESTERASE Negative (Negative); NITRITE Negative (Negative); UROBILINOGEN 0.2 E.U./dl (0.0-1.0)
[2021-07-06 16:20] LABS: BACTERIA TRACE; EPITHELIAL CELLS 0-2; WBC 0-2 wbc/hpf (0-5)
== END 2021-07-06 18:40 | disposition home or self-care (01) ==
LOC: ED 12:31
PROVIDERS: Emergency Medicine; Nurse Practitioner Family
DX: R42 Dizziness and giddiness (principal); R51.9 Headache, unspecified; Z88.0 Allergy status to penicillin; Z88.6 Allergy status to analgesic agent; Z79.899 Other long term (current) drug therapy; Z98.890 Other specified postprocedural states; Z87.891 Personal history of nicotine dependence